=== PATIENT | female | born 1950 | race Caucasian/White ===

== ENCOUNTER → 2016-11-16 | Outpatient (CLI) | payer MEDICARE ==
[~2016-11-16] MED LIST: ALLFEN400 MG; AMITRIPTYLINE H10 M1 PO; BENTYL 20MG20 MG/TAB PO; CATAPRES 0.1MG0.1 MG PO; CELEXA40 MG PO; GLUCOPHAGE1000 MG PO; GLUCOTROL 5M5 MG/TAB PO; LEVEMIR100 U/ML SC; LEVEMIR100 U/ML SQ; LOFIBRA160 MG PO; LOPID 600M600 MG/TAB PO; MAG-OX 400400 MG/TAB PO; MELATONIN3 M1 PO; MULTI VITAMINS1 TAB PO; MULTIPLE VITAMI1 CAP PO; NEURONTIN300 MG/CAP PO; NEURONTIN600 MG/TAB PO; NORCO 325 MG-51 TAB PO; NOVOLOG 100U100 U/M1 SC; NOVOLOG 100U100 U/M1 SQ; PERCOCET 325 MG1 TA2 PO; PREDNISONE20 MG PO; PRILOSEC 20MG20 MG PO; PROAIR HFA0.09 MG/AC IH; PROVENTIL0.09 MG/A1 IH; PROZAC 20MG20 MG PO; RITE AID KRILL500 MG PO; RT ADVAIR 228 DISKUS; RT ADVAIR 228 DISKUS IH; TENORMIN 5050 MG/TAB PO; XANAX .25M0.25 MG/TA; XANAX2 MG PO; ZANTAC 150MG T150 MG PO; ZITHROMAX Z PA250 MG PO
== END ==
LOC: SUN.DIA 09:49
DX: E11.65 Type 2 diabetes mellitus with hyperglycemia (principal); Z79.4 Long term (current) use of insulin; E66.9 Obesity, unspecified; Z68.37 Body mass index [BMI] 37.0-37.9, adult; Z71.3 Dietary counseling and surveillance; E78.5 Hyperlipidemia, unspecified; I10 Essential (primary) hypertension

== ENCOUNTER → 2016-12-21 | Outpatient (CLI) | payer MEDICARE | LOC: SUN.DIA 13:50 | DX: Z68.34 Body mass index [BMI] 34.0-34.9, adult (principal); E66.9 Obesity, unspecified; Z71.3 Dietary counseling and surveillance; E78.5 Hyperlipidemia, unspecified; I10 Essential (primary) hypertension; K21.9 Gastro-esophageal reflux disease without esophagitis; J45.909 Unspecified asthma, uncomplicated ==

== ENCOUNTER 2017-01-18 16:35 | Day surgery (SDC) | payer MEDICARE ==
[~2017-01-18] VITALS: Ht 167.6 cm; Wt 95.0 kg
[2017-01-18] VITALS (7 sets, daily range): BP systolic 108–140; BP diastolic 48–88; PULSE 58–82
[~2017-01-18 16:35] MED LIST changes: -ALLFEN400 MG; -LEVEMIR100 U/ML SQ; -MULTI VITAMINS1 TAB PO; -RT ADVAIR 228 DISKUS; -XANAX .25M0.25 MG/TA
[2017-01-18 17:12] LABS: BASO % 0.3 % (0.0-2.0); EOS % 0.1 % (0-4.0); GRAN # 9.1 (1.4-6.5); GRAN % 74.8 % (42.2-75.2); HEMOGLOBIN 14.2 g/dl (12.5-16.0); LYMPH # 2.4 (1.2-3.4); MEAN CELL VOLUME 92 fl (80.0-100.0); MEAN CORPUSCULAR HEMOGLOBIN 32 pg (27.0-31.0); MEAN CORPUSCULAR HGB CONC 35 g/dl (33.0-37.0); MEAN PLATELET VOLUME 11.6 fl (7.4-10.4); MONO # 0.6 (0.1-0.6); MONO % 4.5 % (1.7-9.3); PLATELET COUNT 202 K/mm3 (130-400); RED BLOOD COUNT 4.45 M/mm3 (4.10-5.30); REDCELL DISTRIBUTION WIDTH-CV 11.9 % (11.5-14.5); WHITE BLOOD COUNT 12.1 K/mm3 (4.8-10.8)
[2017-01-18] MEDS ORDERED: CELEXA40 MG PO (17:29)
[2017-01-18] MEDS ORDERED: CATAPRES 0.1MG0.1 MG PO (17:29)
[2017-01-18] MEDS ORDERED: TENORMIN 5050 MG/TAB PO (17:29)
[2017-01-18] MEDS ORDERED: MULTI VITAMINS1 TAB PO (17:30)
[2017-01-18] MEDS ORDERED: NOVOLOG 100U100 U/M1 SQ (17:30)
[2017-01-18] MEDS ORDERED: AMITRIPTYLINE H10 M1 PO (17:31)
[2017-01-18] MEDS ORDERED: LEVEMIR100 U/ML SQ (17:32)
[2017-01-18 17:35] LABS: ADJUSTED CALCIUM 8.4 mg/dL (8.4-10.2); ALBUMIN 4.1 gm/dL (3.5-5.0); BILIRUBIN,TOTAL 0.9 mg/dL (0.0-1.0); C-REACTIVE PROTEIN 2.7 mg/dL (0.0-0.9); CALCIUM 8.5 mg/dL (8.4-10.2); CREATININE, serum 0.74 mg/dL (0.52-1.25); POTASSIUM 3.8 mmol/L (3.4-5.0)
[2017-01-19 00:45] VITALS: BP 124/51; PULSE 64
[2017-01-19 02:20] VITALS: BP 116/51; PULSE 59; TEMP 97.5
[2017-01-19 03:35] VITALS: BP 140/81; PULSE 82
[2017-01-19 05:45] VITALS: BP 112/49; PULSE 64; TEMP 97.7
[2017-01-19] MEDS ORDERED: NORCO 325 MG-51 TAB PO (09:04)
[2017-01-19 09:21] VITALS: BP 95/42; PULSE 61; TEMP 98.8
[2017-01-19 13:36] VITALS: BP 120/50; PULSE 54; TEMP 98.7
== END 2017-01-19 16:05 | disposition home or self-care (01) ==
LOC: COL.ER 16:35 → SDCO 18:56 → SURG 18:56 → SDCO 01-19 16:05
PROVIDERS: Nurse Practitioner
DX: K35.80 Unspecified acute appendicitis (principal); I10 Essential (primary) hypertension; E11.9 Type 2 diabetes mellitus without complications; Z79.4 Long term (current) use of insulin; Z98.84 Bariatric surgery status; E66.9 Obesity, unspecified; R06.02 Shortness of breath; M19.90 Unspecified osteoarthritis, unspecified site; K21.9 Gastro-esophageal reflux disease without esophagitis; M79.7 Fibromyalgia
CPT/HCPCS: OP; J0694; J1170; J1815; J2405; J2704; J2765; J3010; J7030; J7120; Q9967

== ENCOUNTER 2017-02-18 23:32 | Emergency (ER) | payer MEDICARE ==
[~2017-02-18] VITALS: Ht 167.6 cm; Wt 92.7 kg
[~2017-02-18 23:32] MED LIST changes: +LEVEMIR100 U/ML SQ; +MULTI VITAMINS1 TAB PO
[2017-02-18 23:33] VITALS: TEMP 99
[2017-02-19 02:53] VITALS: BP 140/84; PULSE 70
== END 2017-02-19 02:56 | disposition home or self-care (01) ==
LOC: COL.ER 23:32
DX: S50.02XA Contusion of left elbow, initial encounter (principal); S80.02XA Contusion of left knee, initial encounter; W01.10XA Fall on same level from slipping, tripping and stumbling with subsequent striking against unspecified object, initial encounter; I10 Essential (primary) hypertension

== ENCOUNTER 2017-02-25 10:33 | Emergency (ER) | payer MEDICARE ==
[~2017-02-25] VITALS: Ht 167.6 cm; Wt 92.5 kg
[2017-02-25 10:35] VITALS: BP 105/58; PULSE 62; TEMP 98.7
[2017-02-25] MEDS ORDERED: XANAX .25M0.25 MG/TA (10:54)
[2017-02-25] MEDS ORDERED: PREDNISONE20 MG PO (11:24)
== END 2017-02-25 11:25 | disposition home or self-care (01) ==
LOC: COL.ER 10:33
DX: L23.7 Allergic contact dermatitis due to plants, except food (principal); I10 Essential (primary) hypertension; J45.909 Unspecified asthma, uncomplicated; M19.90 Unspecified osteoarthritis, unspecified site; E11.9 Type 2 diabetes mellitus without complications; Z79.4 Long term (current) use of insulin; Z90.710 Acquired absence of both cervix and uterus; Z90.49 Acquired absence of other specified parts of digestive tract; Z98.890 Other specified postprocedural states

== ENCOUNTER 2017-04-24 19:14 | Emergency (ER) | payer MEDICARE ==
[~2017-04-24] VITALS: Ht 167.6 cm; Wt 91.7 kg
[~2017-04-24 19:14] MED LIST changes: +XANAX .25M0.25 MG/TA
[2017-04-24 19:18] VITALS: BP 167/73; TEMP 97.8
[2017-04-24] MEDS ORDERED: XANAX2 MG PO (19:31)
[2017-04-24] MEDS ORDERED: RT ADVAIR 228 DISKUS (19:32)
[2017-04-24] MEDS ORDERED: ALLFEN400 MG (19:33)
[2017-04-24 21:13] VITALS: PULSE 56
== END 2017-04-24 21:15 | disposition home or self-care (01) ==
LOC: COL.ER 19:14
DX: S09.90XA Unspecified injury of head, initial encounter (principal); E11.9 Type 2 diabetes mellitus without complications; I10 Essential (primary) hypertension; F32.9 Major depressive disorder, single episode, unspecified; F41.9 Anxiety disorder, unspecified; Z79.4 Long term (current) use of insulin; Z79.82 Long term (current) use of aspirin; Z79.84 Long term (current) use of oral hypoglycemic drugs; W22.8XXA Striking against or struck by other objects, initial encounter

== ENCOUNTER → 2017-04-26 | Outpatient (CLI) | payer MEDICARE ==
[~2017-04-26] MED LIST changes: +ALLFEN400 MG; +RT ADVAIR 228 DISKUS
== END ==
LOC: SUN.DIA 04-19 16:52
DX: E11.65 Type 2 diabetes mellitus with hyperglycemia (principal); E78.5 Hyperlipidemia, unspecified; I10 Essential (primary) hypertension; E66.9 Obesity, unspecified; Z68.32 Body mass index [BMI] 32.0-32.9, adult; Z71.3 Dietary counseling and surveillance; Z79.4 Long term (current) use of insulin
CPT/HCPCS: G0108

== ENCOUNTER 2018-01-07 18:34 | Emergency (ER) | payer MEDICARE ==
[~2018-01-07] VITALS: Ht 167.6 cm; Wt 78.5 kg
[2018-01-07 18:44] VITALS: TEMP 97.9
[2018-01-07 19:19] LABS: BASO % 0.5 % (0.0-2.0); EOS # 0.1 (0.0-0.7); GRAN # 3.5 (1.4-6.5); HEMOGLOBIN 12.3 g/dl (12.5-16.0); LYMPH # 3.7 (1.2-3.4); LYMPH % 46.9 % (20.0-51.0); MEAN CELL VOLUME 94 fl (80.0-100.0); MEAN CORPUSCULAR HEMOGLOBIN 33 pg (27.0-31.0); MEAN CORPUSCULAR HGB CONC 35 g/dl (33.0-37.0); MEAN PLATELET VOLUME 11.2 fl (7.4-10.4); MONO # 0.5 (0.1-0.6); MONO % 6.3 % (1.7-9.3); PLATELET COUNT 179 K/mm3 (130-400); RED BLOOD COUNT 3.75 M/mm3 (4.10-5.30)
[2018-01-07 19:21] LABS: HEMATOCRIT 35.2 % (37.0-47.0)
[2018-01-07 19:24] LABS: PROTHROMBIN TIME 10.8 SECONDS (9.7-12.8)
[2018-01-07 19:26] LABS: PARTIAL THROMBOPLASTIN TIME 34.7 SECONDS (26.0-37.0)
[2018-01-07 19:33] LABS: ALANINE AMINOTRANSFERASE 29 U/L (9-52); ALBUMIN 3.9 gm/dL (3.5-5.0); ALKALINE PHOSPHATASE 107 U/L (50-136); ANION GAP 13 mmol/L (7-16); AST,SGOT 30 U/L (15-37); BILIRUBIN,TOTAL 0.3 mg/dL (0.0-1.0); BLOOD UREA NITROGEN 16 mg/dL (7-17); CALCIUM 9.1 mg/dL (8.4-10.2); CARBON DIOXIDE 25 mmol/L (22-30); CHLORIDE 102 mmol/L (98-107); CREATININE, serum 0.85 mg/dL (0.52-1.25); GLUCOSE 126 mg/dL (74-106); LIPASE 172 U/L (23-300); SODIUM 140 mmol/L (137-145); TOTAL PROTEIN 6.9 gm/dL (6.4-8.2)
[2018-01-07 19:48] LABS: TROPONIN-I < 0.012 ng/mL (0.000-0.034)
[2018-01-07 22:26] VITALS: BP 121/62; PULSE 58
== END 2018-01-07 22:06 | disposition home or self-care (01) ==
LOC: COL.ER 18:34
PROVIDERS: Physician Assistant
DX: S00.83XA Contusion of other part of head, initial encounter (principal); R07.89 Other chest pain; E11.9 Type 2 diabetes mellitus without complications; E78.5 Hyperlipidemia, unspecified; I10 Essential (primary) hypertension; Z79.4 Long term (current) use of insulin; Z79.51 Long term (current) use of inhaled steroids; W20.8XXA Other cause of strike by thrown, projected or falling object, initial encounter
CPT/HCPCS: J2270; J2405

== ENCOUNTER → 2018-03-28 | Outpatient (CLI) | payer MEDICARE | LOC: MC.RAD 09:12 | DX: Z12.31 Encounter for screening mammogram for malignant neoplasm of breast (principal) ==

== ENCOUNTER 2018-07-17 18:16 | Emergency (ER) | payer MEDICARE ==
[~2018-07-17] VITALS: Ht 167.6 cm; Wt 72.3 kg
[2018-07-17 18:17] VITALS: TEMP 98.8
[2018-07-17 19:05] LABS: BASO % 0.5 % (0.0-2.0); EOS # 0.1 (0.0-0.7); EOS % 0.8 % (0-4.0); GRAN # 4.4 (1.4-6.5); GRAN % 55.6 % (42.2-75.2); HEMOGLOBIN 12.2 g/dl (12.5-16.0); LYMPH # 2.9 (1.2-3.4); LYMPH % 36.9 % (20.0-51.0); MEAN CELL VOLUME 97 fl (80.0-100.0); MEAN CORPUSCULAR HEMOGLOBIN 33 pg (27.0-31.0); MEAN CORPUSCULAR HGB CONC 34 g/dl (33.0-37.0); MEAN PLATELET VOLUME 11.3 fl (7.4-10.4); MONO # 0.5 (0.1-0.6); MONO % 6.1 % (1.7-9.3); PLATELET COUNT 195 K/mm3 (130-400); RED BLOOD COUNT 3.72 M/mm3 (4.10-5.30); REDCELL DISTRIBUTION WIDTH-CV 12.1 % (11.5-14.5)
[2018-07-17 19:06] LABS: HEMATOCRIT 36.2 % (37.0-47.0)
[2018-07-17 19:09] LABS: PH 5 (5-8); SQUAMOUS EPITHELIAL 0-2 /hpf; URINE APPEARANCE Clear; URINE BACTERIA None Seen /hpf; URINE BILIRUBIN Negative (NEGATIVE); URINE BLOOD Negative (NEGATIVE); URINE COLOR Yellow; URINE GLUCOSE 1+ (NEGATIVE); URINE KETONE Negative (NEGATIVE); URINE LEUKOCYTE ESTERASE 1+ (NEGATIVE); URINE NITRATE Negative (NEGATIVE); URINE PROTEIN(semi-quant) Negative (NEGATIVE); URINE RBC 0-2 /hpf; URINE WBC 20-50 /hpf
[2018-07-17 19:11] LABS: PROTHROMBIN TIME 11.1 SECONDS (9.7-12.8)
[2018-07-17 19:17] LABS: ALANINE AMINOTRANSFERASE 28 U/L (9-52); ALBUMIN 3.8 gm/dL (3.5-5.0); ALKALINE PHOSPHATASE 93 U/L (50-136); ANION GAP 3 mmol/L (7-16); AST,SGOT 19 U/L (15-37); BILIRUBIN,TOTAL 0.2 mg/dL (0.0-1.0); BLOOD UREA NITROGEN 19 mg/dL (7-17); CARBON DIOXIDE 34 mmol/L (22-30); CHLORIDE 101 mmol/L (98-107); CREATININE, serum 0.92 mg/dL (0.52-1.25); GLUCOSE 161 mg/dL (74-106); POTASSIUM 4.2 mmol/L (3.4-5.0); SODIUM 138 mmol/L (137-145); TOTAL PROTEIN 6.6 gm/dL (6.4-8.2)
[2018-07-17 19:30] LABS: COLLECTION METHOD CLEAN CATCH
[2018-07-17 19:33] LABS: TROPONIN-I < 0.012 ng/mL (0.000-0.034)
[2018-07-17] MEDS ORDERED: OMNICEF 300MG300 MG PO (19:43)
[2018-07-17 22:09] VITALS: BP 178/87; PULSE 54
== END 2018-07-17 22:09 | disposition home or self-care (01) ==
LOC: COL.ER 18:16
PROVIDERS: Emergency Medicine
DX: S00.91XA Abrasion of unspecified part of head, initial encounter (principal); S80.211A Abrasion, right knee, initial encounter; N39.0 Urinary tract infection, site not specified; I10 Essential (primary) hypertension; M79.7 Fibromyalgia; Z79.4 Long term (current) use of insulin; Z79.51 Long term (current) use of inhaled steroids; W19.XXXA Unspecified fall, initial encounter; Y92.009 Unspecified place in unspecified non-institutional (private) residence as the place of occurrence of the external cause
CPT/HCPCS: A4216; J0696

== ENCOUNTER 2018-07-20 19:00 | Emergency (ER) | payer MEDICARE ==
[~2018-07-20] VITALS: Ht 167.6 cm; Wt 72.3 kg
[~2018-07-20 19:00] MED LIST changes: +OMNICEF 300MG300 MG PO
[2018-07-20 19:15] VITALS: TEMP 99.4
[2018-07-20] MEDS ORDERED: BACTRIM DS 8001 TAB PO (20:02)
[2018-07-20] MEDS ORDERED: NORCO 325 MG-51 TAB PO (20:43)
[2018-07-20 21:06] VITALS: BP 163/76; PULSE 57
== END 2018-07-20 21:27 | disposition home or self-care (01) ==
LOC: COL.ER 19:00
DX: S62.610A Displaced fracture of proximal phalanx of right index finger, initial encounter for closed fracture (principal); Z79.4 Long term (current) use of insulin; W18.39XA Other fall on same level, initial encounter

== ENCOUNTER 2018-12-27 10:52 | Inpatient (IN) | payer MEDICARE ==
[~2018-12-27] VITALS: Ht 167.6 cm; Wt 72.2 kg
[~2018-12-27 10:52] MED LIST changes: +BACTRIM DS 8001 TAB PO
[2019-01-17] VITALS (10 sets, daily range): BP systolic 104–170; BP diastolic 41–86; PULSE 54–60; TEMP 97.7–97.9
[2019-01-17] MEDS ORDERED: MAGNESIUM200 MG PO (08:42)
[2019-01-17] MEDS ORDERED: GLUCOPHAGE500 MG/TAB PO (08:43)
--- NOTE | 2019-01-17 09:00 | NUR ---
admitted ambulatory to room 327 at 0810, prepped for surgery without incident, explanation given for going to and returning from surgery, verbalizes understanding
--- NOTE | 2019-01-17 09:40 | NUR ---
SW met with the patient to discuss discharge plan. The patient lives in [place] with her , Toy. She reports independence with ADLs and has a walker. The patient's PCP is Dr. Jenniffer Gee and she receives her medications at the [facility]. She reports no difficulties obtaining her meds. The patient's advanced directives are in EMR. The patient plans to return home with her and receive outpatient therapy at [facility]. She states her first appointment is Wednesday, 01/20. No additional needs at this time.
--- NOTE | 2019-01-17 09:48 | NUR ---
up to bathroom and voided and now back in bed and to surgery, re port called to Dalton, BILLING SUPERVISOR
--- NOTE | 2019-01-17 11:52 | NUR ---
remains in surgery
--- NOTE | 2019-01-17 13:30 | NUR ---
returned to room per bed from PACU, awake and alert, IV infusing and placed on pump at 100ml/hr, O2 off and O2 sat 97%, RASHAD hose on left leg, bulky dressing to right leg and ice on, SCDs on bilaterally, has sensation to toes and is able to move lower extremities, denies needs at this time
--- NOTE | 2019-01-17 14:00 | NUR ---
statesis beginning to have pain to right knee and it is increasing, medicated with hydrocodone 7.5mg 2 tabs
--- NOTE | 2019-01-17 14:15 | NUR ---
full assessment completed, see interventions for further info, visiting with solar energy systems designer
--- NOTE | 2019-01-17 14:45 | NUR ---
provided applesauce and jellow and if tolerates will order regular food, verbalizes understanding of how to do that
--- NOTE | 2019-01-17 15:20 | NUR ---
had jello and applesauce and tolerated well, will wait to order regular food, will try to nap
--- NOTE | 2019-01-17 15:50 | NUR ---
called and requesting to get up to bathroom, assisted up to bathroom with one assist and moves well, was able to void, then back to bed
--- NOTE | 2019-01-17 16:15 | NUR ---
appears to be dozing between checks
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
--- NOTE | 2019-01-17 18:14 | NUR ---
returned to room per recliner and assisted into bed after warning cancelled, eating supper now, c/o pain and medicated with hydrocodone 7 .5mg 2 tabs
--- NOTE | 2019-01-17 18:49 | NUR ---
bedside shift report given to TODD Santiago
--- NOTE | 2019-01-17 22:00 | NUR ---
Pt. sitting up in bed watching TV at this time. Pt. is A&OX3, shift assessment complete. IV to lt. forearm patent, IV fluids infusing per orders. Dressing to rt. knee CDI. Pt. denies pain or other needs, call light within reach.
[2019-01-18] VITALS: BP 169/64; PULSE 69; TEMP 98.2
[2019-01-18 04:00] VITALS: BP 185/83; PULSE 72; TEMP 98.3
--- NOTE | 2019-01-18 06:11 | NUR ---
Pt. slept well through the night. Pt. remains A&OX3. IV to lt. forearm remains patent, IV fluids infusing per orders. Pt. reported pain at a 8 on pain scale this am. Gave second Roxicodone, see mar. Dressing to rt. knee remains CDI. Pt. denies further needs, call light within reach.
--- NOTE | 2019-01-18 06:31 | NUR ---
bedside shift report received from TODD Santiago
[2019-01-18 07:12] VITALS: BP 175/73; PULSE 72; TEMP 98.7
--- NOTE | 2019-01-18 07:30 | NUR ---
awake resting in bed and has had breakfast and tolerated well, full assessment completed, see interventions for further info,
--- NOTE | 2019-01-18 09:20 | NUR ---
c/o pain to right knee 03/08, medicated with hydrocodone 7.5mg 2 tabs,
--- NOTE | 2019-01-18 09:42 | NUR ---
dressing to right knee removed, incision intact and aquacel dressing placed, physical therapy in to work with patient
--- NOTE | 2019-01-18 11:01 | NUR ---
up and resting in chair, denies needs
[2019-01-18 11:12] VITALS: BP 138/61; PULSE 60; TEMP 98.6
--- NOTE | 2019-01-18 11:53 | NUR ---
resting in bed, denies needs at this time
--- NOTE | 2019-01-18 12:25 | NUR ---
First visit from the dinkey press operator. No needs right now.
--- NOTE | 2019-01-18 12:51 | NUR ---
c/o pain to right knee 02/06, medicated with roxicodone 10mg
--- NOTE | 2019-01-18 15:12 | NUR ---
appears to be sleeping, in bed with eyes closed, resp quiet and easy
[2019-01-18 15:49] VITALS: BP 171/76; PULSE 64; TEMP 97.9
--- NOTE | 2019-01-18 16:15 | NUR ---
resting in bed and denies needs
--- NOTE | 2019-01-18 18:22 | NUR ---
c/o pain and medicated with hydrocodone 7.5mg 2 tabs
--- NOTE | 2019-01-18 18:50 | NUR ---
bedside shift report given to TODD Maria
--- NOTE | 2019-01-18 19:16 | NUR ---
Report received from TODD Magdaleno.
[2019-01-18 21:52] VITALS: BP 128/55; PULSE 74; TEMP 98.1
--- NOTE | 2019-01-18 23:08 | NUR ---
Patient instructed to continue to use IS, due to slight wheezing to right lower lobe on expiration. Oxygen saturation WNL. Will continue to monitor patient.
--- NOTE | 2019-01-19 01:53 | NUR ---
Patient called this nurse and stated her pain was 11/10 to her right knee. PRN pain medication given. Awaiting results.
--- NOTE | 2019-01-19 07:07 | NUR ---
report from Pooja BROOKS.
--- NOTE | 2019-01-19 07:10 | NUR ---
Report given to TODD Rosario.
[2019-01-19] MEDS ORDERED: XARELTO10 MG PO (07:15)
[2019-01-19] MEDS ORDERED: ROXICODONE 55 MG/TAB PO (07:16)
[2019-01-19] MEDS ORDERED: NORCO 325 MG-7.1 TAB PO (07:16)
[2019-01-19 07:52] VITALS: BP 129/54; PULSE 74; TEMP 98.1
--- NOTE | 2019-01-19 11:29 | NUR ---
JOANNE met with the patient to review discharge plan and to discuss concerns that the patient expressed to her nurse and the HARDWOOD FLOOR INSTALLER. The patient reports that her is no longer able to help her. She states that he is in [place], but not sure if he will be staying at their home. She states that she does have friend and neighbor support. The patient reports that she would now prefer home health over outpatient therapy. JOANNE presented the patient with [employer]'s list of home health agencies that serve [place]. The patient chose [facility]. JOANNE contacted and faxed a referral to [facility] . JOANNE awaiting their screening. The patient reports that she plans to use the [employer] for transportation back home and that her neighbors will help her off the bus into her home. The patient had no other questions or concerns for JOANNE at this time. JOANNE to continue to follow.
--- NOTE | 2019-01-19 13:48 | NUR ---
PT OUT TO HURT FOR THERAPY. RETURNED TO ROOM AFTER.
--- NOTE | 2019-01-19 14:28 | NUR ---
CALLED AND UPDATED TED [facility]. LEFT MESSAGE ON VOICE MAIL
--- NOTE | 2019-01-19 15:37 | NUR ---
DISCHARGE INSTRUCTIONS REVIEWED WITH PATEINT. QUESTIONS ANSWERED. PT TAKEN TO FRONT VIA WHEEL CHAIR. PT TO RECIEVE SERVICES FROM [facility].
--- NOTE | 2019-01-19 16:29 | NUR ---
Mervin, at [facility], reports that they can accept the patient for services. SW informed the patient. The patient is to discharge back home today, 01/19, with home health services for PT through [facility]. No additional needs at this time.
== END 2019-01-19 15:38 | disposition home health service (06) | DRG 470 ==
LOC: JCC 01-17 07:30
PROVIDERS: ADMIT Orthopaedic Surgery
PROC: 0SRC0J9 Replacement of Right Knee Joint with Synthetic Substitute, Cemented, Open Approach (ICD-10-PCS; principal; 2019-01-17 10:30)
DX: M17.11 Unilateral primary osteoarthritis, right knee (principal); E11.9 Type 2 diabetes mellitus without complications; Z79.4 Long term (current) use of insulin; I10 Essential (primary) hypertension; E78.00 Pure hypercholesterolemia, unspecified
CPT/HCPCS: A9284; C1776; J0690; J2250; J2704; J3010; J7042; J7120

== ENCOUNTER 2019-03-20 18:07 | Emergency (ER) | payer MEDICARE ==
[~2019-03-20] VITALS: Ht 167.6 cm; Wt 68.2 kg
[~2019-03-20 18:07] MED LIST changes: +GLUCOPHAGE500 MG/TAB PO; +MAGNESIUM200 MG PO; +NORCO 325 MG-7.1 TAB PO; +ROXICODONE 55 MG/TAB PO; +XARELTO10 MG PO
[2019-03-20 18:14] VITALS: BP 101/58; TEMP 96.7
[2019-03-20 20:48] VITALS: PULSE 74
== END 2019-03-20 20:48 | disposition home or self-care (01) ==
LOC: COL.ER 18:07
DX: K59.00 Constipation, unspecified (principal); E11.9 Type 2 diabetes mellitus without complications; I10 Essential (primary) hypertension; F41.9 Anxiety disorder, unspecified; F32.9 Major depressive disorder, single episode, unspecified; Z79.84 Long term (current) use of oral hypoglycemic drugs; Z96.651 Presence of right artificial knee joint

== ENCOUNTER 2019-10-06 14:48 | Emergency (ER) | payer MEDICARE ==
[~2019-10-06] VITALS: Ht 167.6 cm; Wt 72.7 kg
[2019-10-06 14:53] VITALS: TEMP 97.6
[2019-10-06 15:30] LABS: BASO # 0.1 (0.0-0.2); BASO % 0.7 % (0.0-2.0); EOS % 0.6 % (0-4.0); GRAN # 4.2 (1.4-6.5); GRAN % 57.9 % (42.2-75.2); HEMOGLOBIN 11.6 g/dl (12.5-16.0); LYMPH # 2.5 (1.2-3.4); LYMPH % 34.1 % (20.0-51.0); MEAN CELL VOLUME 97 fl (80.0-100.0); MEAN CORPUSCULAR HEMOGLOBIN 33 pg (27.0-31.0); MEAN CORPUSCULAR HGB CONC 33 g/dl (33.0-37.0); MEAN PLATELET VOLUME 10.7 fl (7.4-10.4); MONO # 0.5 (0.1-0.6); MONO % 6.4 % (1.7-9.3); PLATELET COUNT 198 K/mm3 (130-400); RED BLOOD COUNT 3.57 M/mm3 (4.10-5.30); REDCELL DISTRIBUTION WIDTH-CV 12.2 % (11.5-14.5)
[2019-10-06 15:37] LABS: HEMATOCRIT 34.7 % (37.0-47.0)
[2019-10-06 15:47] LABS: ALANINE AMINOTRANSFERASE 19 U/L (9-52); ALKALINE PHOSPHATASE 78 U/L (50-136); ANION GAP 11 mmol/L (7-16); AST,SGOT 19 U/L (15-37); BILIRUBIN,TOTAL 0.4 mg/dL (0.0-1.0); BLOOD UREA NITROGEN 14 mg/dL (7-17); CALCIUM 9.2 mg/dL (8.4-10.2); CARBON DIOXIDE 26 mmol/L (22-30); CHLORIDE 99 mmol/L (98-107); CREATININE, serum 0.76 (0.52-1.25); GLUCOSE 105 mg/dL (74-106); POTASSIUM 4.3 mmol/L (3.4-5.0); SALICYLATE 2.5 mg/dL; SODIUM 136 mmol/L (137-145); TOTAL PROTEIN 6.7 gm/dL (6.4-8.2)
[2019-10-06 15:50] LABS: ACETAMINOPHEN < 10 ug/mL (10-30); ALCOHOL(ethanol),MEDICAL < 10 mg/dL
[2019-10-06 16:21] LABS: COLLECTION METHOD CLEAN CATCH
[2019-10-06] MEDS ORDERED: MASON NATURAL2000 IU PO (16:24)
[2019-10-06] MEDS ORDERED: XANAX2 MG PO (16:25)
[2019-10-06] MEDS ORDERED: AMITRIPTYLINE H25 M1 PO (16:26)
[2019-10-06] MEDS ORDERED: NORCO 325 MG-51 TAB PO (16:28)
[2019-10-06 16:50] LABS: TRICYCLIC ANTIDEPRESS URINE POSITIVE
[2019-10-06 16:53] LABS: MUCOUS Present /lpf; PH 7 (5-8); SQUAMOUS EPITHELIAL None Seen /hpf; URINE APPEARANCE Hazy; URINE BACTERIA Occasional /hpf; URINE BILIRUBIN Negative (NEGATIVE); URINE BLOOD Negative (NEGATIVE); URINE GLUCOSE Negative (NEGATIVE); URINE KETONE Negative (NEGATIVE); URINE LEUKOCYTE ESTERASE Trace (NEGATIVE); URINE NITRATE Negative (NEGATIVE); URINE PROTEIN(semi-quant) Negative (NEGATIVE); URINE RBC 0-2 /hpf; URINE UROBILINOGEN Negative (NEGATIVE)
[2019-10-06 16:57] LABS: URINE COLOR Yellow
[2019-10-06] MEDS ORDERED: ATIVAN 1MG T1 MG/TAB PO (18:12)
[2019-10-06 18:24] VITALS: BP 139/58; PULSE 58
== END 2019-10-06 18:30 | disposition home or self-care (01) ==
LOC: COL.ER 14:48
PROVIDERS: Emergency Medicine
DX: F13.20 Sedative, hypnotic or anxiolytic dependence, uncomplicated (principal); F41.9 Anxiety disorder, unspecified; F32.9 Major depressive disorder, single episode, unspecified; E11.9 Type 2 diabetes mellitus without complications; I10 Essential (primary) hypertension; Z79.84 Long term (current) use of oral hypoglycemic drugs

== ENCOUNTER 2019-10-22 18:09 | Emergency (ER) | payer MEDICARE ==
[~2019-10-22] VITALS: Ht 167.6 cm; Wt 75.0 kg
[~2019-10-22 18:09] MED LIST changes: +AMITRIPTYLINE H25 M1 PO; +ATIVAN 1MG T1 MG/TAB PO; +MASON NATURAL2000 IU PO
[2019-10-22 18:47] LABS: BASO % 0.2 % (0.0-2.0); GRAN # 7.7 (1.4-6.5); GRAN % 72.8 % (42.2-75.2); HEMOGLOBIN 12.1 g/dl (12.5-16.0); LYMPH # 2.1 (1.2-3.4); LYMPH % 20.3 % (20.0-51.0); MEAN CELL VOLUME 94 fl (80.0-100.0); MEAN CORPUSCULAR HEMOGLOBIN 32 pg (27.0-31.0); MEAN CORPUSCULAR HGB CONC 35 g/dl (33.0-37.0); MEAN PLATELET VOLUME 10.2 fl (7.4-10.4); MONO # 0.7 (0.1-0.6); MONO % 6.3 % (1.7-9.3); PLATELET COUNT 229 K/mm3 (130-400); RED BLOOD COUNT 3.73 M/mm3 (4.10-5.30); REDCELL DISTRIBUTION WIDTH-CV 11.9 % (11.5-14.5)
[2019-10-22 18:56] LABS: COLLECTION METHOD CLEAN CATCH
[2019-10-22 18:58] LABS: ALBUMIN 4.3 gm/dL (3.5-5.0); BILIRUBIN,TOTAL 0.7 mg/dL (0.0-1.0); CALCIUM 9.8 mg/dL (8.4-10.2); CREATININE, serum 0.83 (0.52-1.25); TOTAL PROTEIN 7.4 gm/dL (6.4-8.2)
[2019-10-22 19:06] LABS: MUCOUS Present /lpf; PH 7 (5-8); SQUAMOUS EPITHELIAL 0-2 /hpf; URINE APPEARANCE Cloudy; URINE BACTERIA Occasional /hpf; URINE BILIRUBIN Negative (NEGATIVE); URINE BLOOD 1+ (NEGATIVE); URINE COLOR Yellow; URINE GLUCOSE Negative (NEGATIVE); URINE KETONE Negative (NEGATIVE); URINE LEUKOCYTE ESTERASE 3+ (NEGATIVE); URINE NITRATE Positive (NEGATIVE); URINE PROTEIN(semi-quant) 1+ (NEGATIVE); URINE UROBILINOGEN Negative (NEGATIVE)
[2019-10-22 19:22] LABS: HEMATOCRIT 35.1 % (37.0-47.0)
[2019-10-22 19:51] VITALS: TEMP 100.1
[2019-10-22] MEDS ORDERED: ZOFRAN 4MG T4 MG/TAB PO (19:53)
[2019-10-22] MEDS ORDERED: CEPHALEXIN500 M1 PO (19:53)
[2019-10-22 20:13] VITALS: BP 126/63; PULSE 67
== END 2019-10-22 20:13 | disposition home or self-care (01) ==
LOC: COL.ER 18:09
PROVIDERS: Emergency Medicine
DX: J06.9 Acute upper respiratory infection, unspecified (principal); N39.0 Urinary tract infection, site not specified; E11.9 Type 2 diabetes mellitus without complications; Z79.84 Long term (current) use of oral hypoglycemic drugs
CPT/HCPCS: J0696; J1885; J2405; J7030

== ENCOUNTER 2020-06-23 22:45 | Emergency (ER) | payer MEDICARE ==
[~2020-06-23] VITALS: Ht 167.6 cm; Wt 77.3 kg
[~2020-06-23 22:45] MED LIST changes: +CEPHALEXIN500 M1 PO; +ZOFRAN 4MG T4 MG/TAB PO
[2020-06-23 22:48] VITALS: TEMP 97.7
[2020-06-23 23:44] LABS: BASO % 0.5 % (0.0-2.0); EOS # 0.1 (0.0-0.7); EOS % 0.8 % (0-4.0); GRAN # 3.8 (1.4-6.5); GRAN % 57.9 % (42.2-75.2); HEMOGLOBIN 11.5 g/dl (12.5-16.0); LYMPH # 2.2 (1.2-3.4); LYMPH % 34.4 % (20.0-51.0); MEAN CELL VOLUME 98 fl (80.0-100.0); MEAN CORPUSCULAR HEMOGLOBIN 32 pg (27.0-31.0); MEAN CORPUSCULAR HGB CONC 33 g/dl (33.0-37.0); MEAN PLATELET VOLUME 10.6 fl (7.4-10.4); MONO # 0.4 (0.1-0.6); MONO % 6.2 % (1.7-9.3); PLATELET COUNT 194 K/mm3 (130-400); RED BLOOD COUNT 3.55 M/mm3 (4.10-5.30); REDCELL DISTRIBUTION WIDTH-CV 12.2 % (11.5-14.5)
[2020-06-23 23:45] LABS: HEMATOCRIT 34.9 % (37.0-47.0)
[2020-06-23 23:55] LABS: ALBUMIN 3.8 gm/dL (3.5-5.0); BILIRUBIN,TOTAL 0.3 mg/dL (0.0-1.0); CALCIUM 9.1 mg/dL (8.4-10.2); CREATININE, serum 0.83 (0.52-1.25); POTASSIUM 4.4 mmol/L (3.4-5.0); TOTAL PROTEIN 6.5 gm/dL (6.4-8.2)
[2020-06-24 00:31] LABS: COLLECTION METHOD CLEAN CATCH
[2020-06-24 00:43] LABS: MUCOUS Present /lpf; PH 5 (5-8); SQUAMOUS EPITHELIAL None Seen /hpf; URINE APPEARANCE Cloudy; URINE BACTERIA None Seen /hpf; URINE BILIRUBIN Negative (NEGATIVE); URINE BLOOD Negative (NEGATIVE); URINE COLOR Amber; URINE GLUCOSE 1+ (NEGATIVE); URINE KETONE Negative (NEGATIVE); URINE LEUKOCYTE ESTERASE Negative (NEGATIVE); URINE NITRATE Negative (NEGATIVE); URINE PROTEIN(semi-quant) Negative (NEGATIVE); URINE RBC 0-2 /hpf; URINE UROBILINOGEN Negative (NEGATIVE)
[2020-06-24 01:19] VITALS: BP 132/71; PULSE 68
== END 2020-06-24 01:20 | disposition home or self-care (01) ==
LOC: COL.ER 22:45
PROVIDERS: Nurse Practitioner
DX: S70.02XA Contusion of left hip, initial encounter (principal); S20.20XA Contusion of thorax, unspecified, initial encounter; I10 Essential (primary) hypertension; E11.9 Type 2 diabetes mellitus without complications; F41.9 Anxiety disorder, unspecified; Z79.84 Long term (current) use of oral hypoglycemic drugs; W01.0XXA Fall on same level from slipping, tripping and stumbling without subsequent striking against object, initial encounter; Y92.090 Kitchen in other non-institutional residence as the place of occurrence of the external cause
CPT/HCPCS: J2270

== ENCOUNTER 2020-09-14 22:14 | Emergency (ER) | payer MEDICARE ==
[~2020-09-14] VITALS: Ht 167.6 cm; Wt 79.5 kg
[2020-09-14 22:22] VITALS: TEMP 97.9
[2020-09-14 22:37] LABS: BASO # 0.1 (0.0-0.2); BASO % 0.6 % (0.0-2.0); EOS # 0.2 (0.0-0.7); EOS % 2.1 % (0-4.0); GRAN # 4.3 (1.4-6.5); GRAN % 53.3 % (42.2-75.2); HEMATOCRIT 37.9 % (37.0-47.0); HEMOGLOBIN 12.7 g/dl (12.5-16.0); LYMPH % 37.2 % (20.0-51.0); MEAN CELL VOLUME 96 fl (80.0-100.0); MEAN CORPUSCULAR HEMOGLOBIN 32 pg (27.0-31.0); MEAN CORPUSCULAR HGB CONC 34 g/dl (33.0-37.0); MEAN PLATELET VOLUME 10.3 fl (7.4-10.4); MONO # 0.5 (0.1-0.6); MONO % 6.6 % (1.7-9.3); PLATELET COUNT 260 K/mm3 (130-400); RED BLOOD COUNT 3.96 M/mm3 (4.10-5.30); REDCELL DISTRIBUTION WIDTH-CV 11.9 % (11.5-14.5)
[2020-09-14 22:42] LABS: ANION GAP 9 mmol/L (7-16); BLOOD UREA NITROGEN 12 mg/dL (7-17); CALCIUM 9.1 mg/dL (8.4-10.2); CARBON DIOXIDE 28 mmol/L (22-30); CHLORIDE 97 mmol/L (98-107); GLUCOSE 178 mg/dL (74-106); POTASSIUM 3.9 mmol/L (3.4-5.0); SODIUM 134 mmol/L (137-145)
[2020-09-14 22:50] LABS: MAGNESIUM 1.8 mg/dL (1.6-2.3)
[2020-09-14 22:55] LABS: TROPONIN-I < 0.012 ng/mL (0.000-0.035)
[2020-09-14 23:34] LABS: COLLECTION METHOD CLEAN CATCH
[2020-09-14 23:43] LABS: PH 7 (5-8); SQUAMOUS EPITHELIAL None Seen /hpf; URINE APPEARANCE Hazy; URINE BACTERIA Rare /hpf; URINE BILIRUBIN Negative (NEGATIVE); URINE BLOOD Negative (NEGATIVE); URINE COLOR Yellow; URINE GLUCOSE Negative (NEGATIVE); URINE KETONE Negative (NEGATIVE); URINE LEUKOCYTE ESTERASE Trace (NEGATIVE); URINE NITRATE Negative (NEGATIVE); URINE PROTEIN(semi-quant) Negative (NEGATIVE); URINE RBC 0-2 /hpf; URINE UROBILINOGEN Negative (NEGATIVE)
[2020-09-15 01:12] VITALS: BP 149/70; PULSE 66
== END 2020-09-15 01:20 | disposition home or self-care (01) ==
LOC: COL.ER 22:14
PROVIDERS: Emergency Medicine
DX: I16.0 Hypertensive urgency (principal); I10 Essential (primary) hypertension; E11.9 Type 2 diabetes mellitus without complications; F43.10 Post-traumatic stress disorder, unspecified; Z90.710 Acquired absence of both cervix and uterus; Z90.49 Acquired absence of other specified parts of digestive tract; Z79.84 Long term (current) use of oral hypoglycemic drugs
CPT/HCPCS: J0360

== ENCOUNTER 2020-11-27 17:26 | Emergency (ER) | payer MEDICARE ==
[~2020-11-27] VITALS: Ht 167.6 cm; Wt 77.3 kg
[2020-11-27 17:35] VITALS: TEMP 97.7
[2020-11-27 19:20] VITALS: BP 192/82; PULSE 85
== END 2020-11-27 19:20 | disposition home or self-care (01) ==
LOC: COL.ER 17:26
DX: S40.811A Abrasion of right upper arm, initial encounter (principal); S80.211A Abrasion, right knee, initial encounter; M25.521 Pain in right elbow; M79.645 Pain in left finger(s); I10 Essential (primary) hypertension; E11.9 Type 2 diabetes mellitus without complications; M79.7 Fibromyalgia; F41.9 Anxiety disorder, unspecified; F32.9 Major depressive disorder, single episode, unspecified; Z86.73 Personal history of transient ischemic attack (TIA), and cerebral infarction without residual deficits; Z79.84 Long term (current) use of oral hypoglycemic drugs; W01.0XXA Fall on same level from slipping, tripping and stumbling without subsequent striking against object, initial encounter

== ENCOUNTER 2021-06-01 23:03 | Emergency (ER) | payer MEDICARE ==
[~2021-06-01] VITALS: Ht 167.6 cm; Wt 76.4 kg
[2021-06-01 23:32] VITALS: TEMP 97.8
[2021-06-02 01:43] VITALS: BP 124/70; PULSE 76
== END 2021-06-02 01:30 | disposition home or self-care (01) ==
LOC: COL.ER 23:03
DX: S70.01XA Contusion of right hip, initial encounter (principal); S00.03XA Contusion of scalp, initial encounter; E11.9 Type 2 diabetes mellitus without complications; I10 Essential (primary) hypertension; M79.7 Fibromyalgia; Z79.84 Long term (current) use of oral hypoglycemic drugs; Z79.899 Other long term (current) drug therapy; W01.198A Fall on same level from slipping, tripping and stumbling with subsequent striking against other object, initial encounter; Y92.000 Kitchen of unspecified non-institutional (private) residence as the place of occurrence of the external cause

== ENCOUNTER 2021-07-30 15:45 | Emergency (ER) | payer MEDICARE ==
[~2021-07-30] VITALS: Ht 167.6 cm; Wt 76.4 kg
[2021-07-30 16:29] VITALS: TEMP 98.1
[2021-07-30] MEDS ORDERED: LEXAPRO 10MG10 MG PO (17:26)
[2021-07-30] MEDS ORDERED: MINIPRESS2 MG PO (17:27)
[2021-07-30] MEDS ORDERED: FOSAMAX 35MG35 MG PO (17:27)
[2021-07-30] MEDS ORDERED: PRINIVIL5 MG PO (17:28)
[2021-07-30 18:21] VITALS: BP 152/74; PULSE 51
== END 2021-07-30 18:23 | disposition home or self-care (01) ==
LOC: COL.ER 15:45
DX: S60.222A Contusion of left hand, initial encounter (principal); S70.01XA Contusion of right hip, initial encounter; S00.03XA Contusion of scalp, initial encounter; I10 Essential (primary) hypertension; E11.9 Type 2 diabetes mellitus without complications; F32.A Depression, unspecified; F41.9 Anxiety disorder, unspecified; Z79.84 Long term (current) use of oral hypoglycemic drugs; Z79.899 Other long term (current) drug therapy; W01.198A Fall on same level from slipping, tripping and stumbling with subsequent striking against other object, initial encounter

== ENCOUNTER 2022-04-17 10:41 | Day surgery (SDC) | payer MEDICARE ==
[~2022-04-17] VITALS: Ht 167.6 cm; Wt 77.0 kg
[~2022-04-17 10:41] MED LIST changes: +FOSAMAX 35MG35 MG PO; +LEXAPRO 10MG10 MG PO; +MINIPRESS2 MG PO; +PRINIVIL5 MG PO
[2022-04-17 11:41] VITALS: BP 123/66; PULSE 65; TEMP 97.7
[2022-04-17] MEDS ORDERED: LIPITOR 40MG TA40 MG PO (11:53)
[2022-04-17 13:10] VITALS: BP 123/66; PULSE 66; TEMP 97
[2022-04-17 13:25] VITALS: BP 117/57; PULSE 62
--- NOTE | 2022-04-17 13:39 | NUR ---
1310 - PT arrives from procedure, drowsy but oriented; assisted with ambualting from cart to chair 2:1. Gait is mildy unsteady. Monitors applied and vitals obtained. Warm blankets provided. PT denies pain and nausea; provide snack and drink per request. PT oriented to room and call corby, within reach if needed. Will monitor per intervals. 1325 - Vitals obtained. PT has finished snack and drink. PT expressed desire to go home. Awaiting DR. Rubén tavarez remains within reach.
[2022-04-17 13:40] VITALS: BP 101/73; PULSE 64
--- NOTE | 2022-04-17 13:56 | NUR ---
1340- VSS. IV discontinued. Catheter tip intact. Pressure bandage applied. NO redness or swelling noted. DC instructions and educational material reviewed w/ PT who verbalized understanding and signed the related paperwork. Questions answered to PT satisfaction. has spoken w/ PT. PT refused RN assistance changing into personal clothes; call tavarez remains within reach if needed.
--- NOTE | 2022-04-17 14:09 | NUR ---
1405 - PT dismissed from endo via wheelchair to the PT entrence by Gregoria BROOKS. PT has DC packet and personal belongings. PT was transferred into the care of Cony, who is driving private car.
== END 2022-04-17 14:10 | disposition home or self-care (01) ==
LOC: SDCO 10:41
DX: K58.0 Irritable bowel syndrome with diarrhea (principal); Z80.0 Family history of malignant neoplasm of digestive organs; E11.319 Type 2 diabetes mellitus with unspecified diabetic retinopathy without macular edema; Z79.84 Long term (current) use of oral hypoglycemic drugs
CPT/HCPCS: J2704; J7030

== ENCOUNTER 2022-04-25 | Inpatient (IN) | payer MEDICARE ==
[2022-04-25] VITALS (11 sets, daily range): BP systolic 93–129; BP diastolic 45–85; PULSE 55–67; TEMP 97.7–98.8
[~2022-04-25] VITALS: Ht 167.6 cm; Wt 79.9 kg
[~2022-04-25] MED LIST changes: +LIPITOR 40MG TA40 MG PO
[2022-04-25 00:22] LABS: BASO % 0.6 % (0.0-2.0); EOS # 0.1 K/mm3 (0.0-0.7); EOS % 1.3 % (0.0-4.0); GRAN # 3.6 K/mm3 (1.4-6.5); GRAN % 57.3 % (42.2-75.2); HEMOGLOBIN 10.8 g/dl (12.5-16.0); LYMPH # 2.1 K/mm3 (1.2-3.4); LYMPH % 33.2 % (20.0-51.0); MEAN CELL VOLUME 93 fl (80.0-100.0); MEAN CORPUSCULAR HEMOGLOBIN 32 pg (27-31); MEAN CORPUSCULAR HGB CONC 35 g/dl (33.0-37.0); MEAN PLATELET VOLUME 11.1 fl (7.4-10.4); MONO # 0.5 K/mm3 (0.1-0.6); MONO % 7.1 % (1.7-9.3); PLATELET COUNT 171 K/mm3 (130-400); RED BLOOD COUNT 3.38 M/mm3 (4.10-5.30); REDCELL DISTRIBUTION WIDTH-CV 11.9 % (11.5-14.5)
[2022-04-25 00:32] LABS: HEMATOCRIT 31.3 % (37.0-47.0)
[2022-04-25 00:34] LABS: CALCIUM 8.9 mg/dL (8.4-10.2); CREATININE, serum 1.15 mg/dL (0.57-1.11); POTASSIUM 4.8 mmol/L (3.5-4.5)
[2022-04-25 00:48] LABS: INR 1.1 (0.8-3.0); PROTHROMBIN TIME 12.4 SECONDS (9.7-12.8)
[2022-04-25] MEDS ORDERED: LEXAPRO20 MG PO (00:55)
[2022-04-25] MEDS ORDERED: VITAMIN D31000 I1 PO (01:03)
[2022-04-25] MEDS ORDERED: CALCIUM 600600 MG PO (01:04)
[2022-04-25] MEDS ORDERED: MAG-OX 400400 MG/TAB PO (01:43)
[2022-04-25] MEDS ORDERED: TENORMIN 5050 MG/TAB PO (01:49)
[2022-04-25] MEDS ORDERED: PRINIVIL5 MG PO (01:50)
--- NOTE | 2022-04-25 02:15 | NUR ---
PT ADMITTED FROM ED PER CART TO ROOM 326. IS ALERT AND ORIENTED X4. HAS INT TO LEFT AC, FLUSHES WELL. HAS RT THIGH ELEVATED ON ROLLED UP BLANKET FOR COMFORT. WAS ABLE TO TRANSFER WITH SLIDE BOARD AND 4 ASSIST WITH MINIMAL DISCOMFORT. RATES PAIN 3/10 AT THIS TIME. LYLE TO BSD WITH YELLOW URINE.
--- NOTE | 2022-04-25 03:00 | NUR ---
ADMISSION QUESTIONS COMPLETE. PT TOOK ES TYLENOL 1000MG PO PER SCHEDULE. IS NPO FOR SURGERY TODAY.
[2022-04-25 05:08] LABS: COLLECTION METHOD CLEAN CATCH
[2022-04-25 05:18] LABS: MUCOUS Present (NOT PRESENT); SQUAMOUS EPITHELIAL None Seen /hpf (0-10); URINE APPEARANCE Clear (CLEAR/HAZY); URINE BACTERIA None Seen /hpf (NONE SEEN); URINE COLOR Yellow (YELLOW); URINE GLUCOSE 1+ (NEGATIVE); URINE KETONE Negative (NEGATIVE); URINE PROTEIN(semi-quant) Negative (NEGATIVE); URINE RBC 0-2 /hpf (0-2); URINE UROBILINOGEN 0.2 E.U/dL (0.2-1.0)
[2022-04-25 05:19] LABS: URINE BLOOD TRACE-INTACT (NEGATIVE); URINE NITRATE Negative (NEGATIVE)
--- NOTE | 2022-04-25 08:00 | NUR ---
PATIENT IS A&O. VSS. DENIES PAIN AT REST IF SHE DOESN'T MOVE HER RLE. PILLOW UNDER RLE KNEE FOR COMFORT. POSITIVE PEDAL PULSES TO BLE. SCD'S TO BLE. PLAN IS FOR SURGERY LATER TODAY IF CLEARED BY HOSPITALIST. CONSENT OBTAINED AND ON CHART. AM MEDS GIVEN WITH A FEW SIPS. NPO. IV FLUIDS INFUSING VIA PUMP. AM BS WAS 120, NO SSI REQUIRED. LYLE TO DD WITH WITH MOD AMOUNTS OF YELLOW URINE NOTED. HEAD TO TOE ASSESSMENT COMPLETE. NO OTHER NEEDS AT THIS TIME. CALL LIGHT IN REACH.
--- NOTE | 2022-04-25 11:10 | NUR ---
PATIENT GOING DOWN TO SURGERY VIA BED. CONSENT ON CHART. PRE-OP FLUIDS INFUSING VIA GRAVITY. PATIENT OFF FLOOR.
--- NOTE | 2022-04-25 11:28 | NUR ---
SW met with patient to complete intake. Patient states that she lives in [facility] with her Toysendy Howe [phone]. Patient does not currently utilize DME, is independent with ADL's and does not utilize HH services at this time. PCP is Dr. Gee and pharmacy is [facility]. Patient states that her spouse Toy has been appointed as his DPOA of , Alt is her daughter Jacqueline Hooper [phone]. Patient plans to return to her home upon dc. SW will continue to follow. DC plan:home
--- NOTE | 2022-04-25 13:55 | NUR ---
PATIENT BACK IN ROOM POST OP. A&O. VSS. NO COMPLAINTS. HEAD TO TOE ASSESSMENT WNL. RLE DRESSINGS ARE CD&I. POST OP IV FLUIDS INFUSING. PATIENT RESTING WITH CALL LIGHT IN REACH.
--- NOTE | 2022-04-25 20:28 | NUR ---
PT IN BED, IS ALERT AND ORIENTED X4. HAS BEEN REPOSITIONING SELF TO LT SIDE FOR COMFORT, ADDED POSITIONING WEDGE TO ASSIST WITH POSITIONING. HAS IVF TO RFA INFUSING WITHOUT PROBLEM. HAS DRSG TO RT HIP D/I, ICE PACK REPLACED. LYLE TO BSD WITH YELLOW URINE. PT REPORTS PAIN 8/10 TO RT HIP, OXYCODONE 10MG PO GIVEN WELL ZOFRAN 4MG IVP. HS MEDS GIVEN. TEDS AND SCDS ON.
[2022-04-26] VITALS (7 sets, daily range): BP systolic 101–164; BP diastolic 48–104; PULSE 66–86; TEMP 97.6–100.4
--- NOTE | 2022-04-26 02:00 | NUR ---
REFUSES ES TYLENOL.
--- NOTE | 2022-04-26 06:00 | NUR ---
PT DENIES NEED FOR PAIN MEDS AT THIS TIME.
[2022-04-26 06:40] LABS: HEMOGLOBIN 10.7 g/dl (12.5-16.0)
[2022-04-26 06:53] LABS: HEMATOCRIT 33.3 % (37.0-47.0)
[2022-04-27 04:06] VITALS: BP 123/64; PULSE 69; TEMP 98.5
--- NOTE | 2022-04-27 05:38 | NUR ---
PT reports minimal pain in rt hip, oxycodone 5mg given at HS, pt didn't want entire 10mg dose. refused am tylenol, wants to take with food if needed. SSI given @HS, purnima patent/secure, will dc this am.
[2022-04-27 06:30] LABS: BASO % 0.5 % (0.0-2.0); EOS # 0.2 K/mm3 (0.0-0.7); EOS % 3.2 % (0.0-4.0); HEMOGLOBIN 11.3 g/dl (12.5-16.0); LYMPH # 1.6 K/mm3 (1.2-3.4); LYMPH % 25.3 % (20.0-51.0); MEAN CELL VOLUME 93 fl (80.0-100.0); MEAN CORPUSCULAR HEMOGLOBIN 32 pg (27-31); MEAN CORPUSCULAR HGB CONC 34 g/dl (33.0-37.0); MEAN PLATELET VOLUME 10.7 fl (7.4-10.4); MONO # 0.4 K/mm3 (0.1-0.6); MONO % 5.7 % (1.7-9.3); PLATELET COUNT 159 K/mm3 (130-400); RED BLOOD COUNT 3.58 M/mm3 (4.10-5.30); REDCELL DISTRIBUTION WIDTH-CV 12.1 % (11.5-14.5)
[2022-04-27 06:34] LABS: HEMATOCRIT 33.1 % (37.0-47.0)
[2022-04-27 07:07] LABS: CALCIUM 8.9 mg/dL (8.4-10.2); CREATININE, serum 0.82 mg/dL (0.57-1.11); MAGNESIUM 1.6 mg/dL (1.6-2.6); POTASSIUM 4.5 mmol/L (3.5-4.5)
[2022-04-27 07:33] VITALS: BP 161/76; PULSE 71; TEMP 99
--- NOTE | 2022-04-27 08:00 | NUR ---
PATIENT IS A&O. VSS. RATES PAIN IN RLE AT 4-5 AND REQUESTING PAIN MEDS BEFORE AM THERAPY, GIVEN. RIGHT HIP DRESSING IS CD&I WITH GAUZE & TEGADERM. TEDS AND SCD'S TO BLE. LYLE TO DD WITH MOD AMOUNTS OF CLEAR YELLOW URINE NOTED. NO C/O N/V. TOLERATING ADA DIET. AM BS WAS 184, SSI GIVEN. RIGHT FORARM IV TO INT. HEAD TO TOE ASSESSMENT COMPLETE. AM MEDS GIVEN. NO OTHER NEEDS AT THIS TIME. CALL LIGHT IN REACH.
[2022-04-27] MEDS ORDERED: ASPI325T6 PO ×2 (08:54)
[2022-04-27] MEDS ORDERED: TYLENOL 500MG500 MG PO ×2 (08:55)
[2022-04-27] MEDS ORDERED: MULTI VITAMINS1 TAB PO ×2 (08:56)
[2022-04-27] MEDS ORDERED: VITAMIN C500 MG PO ×2 (08:56)
[2022-04-27] MEDS ORDERED: ROXICODONE 55 MG/TAB PO ×3 (08:58→15:47)
[2022-04-27 12:00] VITALS: BP 94/34; PULSE 64; TEMP 97.7
--- NOTE | 2022-04-27 13:12 | NUR ---
icebox worker collaborated with patient's RN, PT Gary and ZAYDA Doyle. At this time, PT is suggesting that the patient can return home with out patient physical therapy. SW was able to observe patient working with PT, and at that time was ambulating halls on own with standby assist and was able to sit/ transfer legs back into bed on her own. SW met with patient post working with therapy. Patient feels comfortable going home with out patient PT at [facility] off of [address]. Patient's clinical information and orders faxed to facility. They will call the patient to schedule her first treatment. Discharge plan: Home with/OPPT
[2022-04-27 15:32] VITALS: BP 150/65; PULSE 68; TEMP 98.9
--- NOTE | 2022-04-27 18:15 | NUR ---
PATIENT'S NOW AT BEDSIDE FOR DISCHARGE. GAVE DISCHARGE INSTRUCTIONS, E-SCRIPTS SENT, AND DISCUSSED F/U APT. ANSWERED QUESTIONS/CONCERNS. RN DC'D RIGHT HAND IV AND COVERED SITE WITH GAUZE & COBAN. PATIENT IS DRESSED, PACKED AND ESCORTED OUT VIA WC TO PERSONAL VEHCILE WITH .
== END 2022-04-27 18:15 | disposition home or self-care (01) | DRG 481 ==
LOC: COL.ER → SURG 00:40
PROVIDERS: Emergency Medicine; Nurse Practitioner Family; Orthopaedic Surgery; ADMIT Internal Medicine
PROC: 0QS636Z Reposition Right Upper Femur with Intramedullary Internal Fixation Device, Percutaneous Approach (ICD-10-PCS; principal; 2022-04-25 12:00)
DX: S72.041A Displaced fracture of base of neck of right femur, initial encounter for closed fracture (principal); E87.1 Hypo-osmolality and hyponatremia; E87.2 Acidosis; E87.8 Other disorders of electrolyte and fluid balance, not elsewhere classified; E87.5 Hyperkalemia; D64.9 Anemia, unspecified; I10 Essential (primary) hypertension; E78.5 Hyperlipidemia, unspecified; G43.909 Migraine, unspecified, not intractable, without status migrainosus; E11.65 Type 2 diabetes mellitus with hyperglycemia; M79.7 Fibromyalgia; N28.9 Disorder of kidney and ureter, unspecified; W01.0XXA Fall on same level from slipping, tripping and stumbling without subsequent striking against object, initial encounter; Z96.651 Presence of right artificial knee joint; M81.0 Age-related osteoporosis without current pathological fracture; F41.9 Anxiety disorder, unspecified; F32.A Depression, unspecified; F43.10 Post-traumatic stress disorder, unspecified; Y93.89 Activity, other specified; Y92.89 Other specified places as the place of occurrence of the external cause; Z88.8 Allergy status to other drugs, medicaments and biological substances; Z90.710 Acquired absence of both cervix and uterus; Z90.89 Acquired absence of other organs; Z90.49 Acquired absence of other specified parts of digestive tract; Z79.84 Long term (current) use of oral hypoglycemic drugs; Z23 Encounter for immunization
CPT/HCPCS: A9284; C1713; J0690; J1815; J2250; J2270; J2405; J2704; J3010; J7030